=== PATIENT | male | born 1980 | race Caucasian/White ===

== ENCOUNTER 2022-03-12 11:28 | Emergency (ER) | payer OTHER ==
[~2022-03-12] VITALS: Ht 188 cm; Wt 83.9 kg
== END 2022-03-12 13:09 | disposition home or self-care (01) ==
LOC: ER 11:28
DX: S71.112A Laceration without foreign body, left thigh, initial encounter (principal); F17.210 Nicotine dependence, cigarettes, uncomplicated; W29.1XXA Contact with electric knife, initial encounter
CPT/HCPCS: 12032; 90471; 90714; 96374; 96375; 99283-25; J1885; J3010